=== PATIENT | male | born 1990 | race Two or more races ===

== ENCOUNTER 2023-03-23 18:12 | Emergency (ER) | payer MEDICAID, OTHER ==
[~2023-03-23] VITALS: Ht 185.4 cm; Wt 86.0 kg
[2023-03-23 18:21] VITALS: BP 141/101; PULSE 79; RESP 18; O2SAT 95
[2023-03-23] MEDS ORDERED: HYDROcodone-ACET 10/325MG TAB PO ONE (19:00)
[2023-03-23] MEDS ORDERED: IBUP-1455 PO (19:59)
[2023-03-23] MEDS ORDERED: TRAM50TA2 PO (19:59)
== END 2023-03-23 20:51 | disposition home or self-care (01) ==
LOC: ER 18:12
DX: S46.911A Strain of unspecified muscle, fascia and tendon at shoulder and upper arm level, right arm, initial encounter (principal); Z88.1 Allergy status to other antibiotic agents; W00.0XXA Fall on same level due to ice and snow, initial encounter; Y93.23 Activity, snow (alpine) (downhill) skiing, snowboarding, sledding, tobogganing and snow tubing; Y92.89 Other specified places as the place of occurrence of the external cause; Y99.8 Other external cause status
CPT/HCPCS: 73030